=== PATIENT | male | born 1950 | race Two or more races ===

== ENCOUNTER 2024-11-09 12:10 | Day surgery (SDC) | payer MEDICARE, BC, SELFPAY ==
[2024-11-08 13:12] VITALS: BMI 31.1
[2024-11-09] VITALS (12 sets, daily range): BP systolic 125–185; BP diastolic 62–90; PULSE 54–63; RESP 12–22; TEMP 36.6–37; O2SAT 94–99; BMI 31.3
[2024-11-09] MEDS: RINGERS LACTATED 1000 ML 1,000 ML 100 ML IV (13:48)
[2024-11-09] MEDS: MIDAZOLAM INJ 1 MG/ML VIAL 2 ML (ASD USE ONLY) 2 MG IVP (13:49)
[2024-11-09] MEDS: fentaNYL CIT INJ 50 mCg/ML AMP 2ML (ASD USE ONLY) IVP (13:49)
== END 2024-11-09 14:59 | disposition home or self-care (01) ==
PROVIDERS: PCP Family Medicine; Referring Provider Surgery; Visit Provider Surgery
PROC: 0DBE8ZX Excision of Large Intestine, Via Natural or Artificial Opening Endoscopic, Diagnostic (ICD-10-PCS; CPT 45380; principal; 2024-11-09 13:45)
DX: Z12.11 Encounter for screening for malignant neoplasm of colon (principal); K57.30 Diverticulosis of large intestine without perforation or abscess without bleeding
CPT/HCPCS: G0121; J2250; J3010; J7120